=== PATIENT | female | born 1980 | race Caucasian/White ===

== ENCOUNTER → 2024-04-26 10:47 | Outpatient (REF) | payer OTHER, SELFPAY | LOC: RAD 10:47 | PROVIDERS: ATTENDING PHYSICIAN Nurse Practitioner Family | DX: R10.84 Generalized abdominal pain (principal) | CPT/HCPCS: 76700 ==

== ENCOUNTER 2024-08-05 11:47 | Emergency (ER) | payer OTHER, SELFPAY ==
[2024-08-05 11:53] VITALS: BP 150/96
[2024-08-05] MEDS: OMNIPAQUE 50 ML PO (12:02)
[2024-08-05 12:15] LABS: % Basophils 0.4 % (0-2); % Immature Granulocytes 0.2 % (0-0.5); % Lymphocytes 27.5 % (20.5-51.1); % Monocytes 5.8 % (1.7-9.3); % Neutrophils 65.1 % (42.2-75.2); Absolute Basophils 0.1 10^3/uL (0-0.2); Absolute Eosinophils 0.1 10^3/uL (0-0.7); Absolute Lymphocytes 3.1 10^3/uL (1.2-3.4); Absolute Monocytes 0.7 10^3/uL (0.1-0.6); Absolute Neutrophils 7.3 10^3/uL (1.4-6.5); Hematocrit 41.7 % (37.0-47.0); Hemoglobin 14.5 g/dL (12.0-16.0); Mean Corp Hgb Conc. 34.8 g/dL (33.0-37.0); Mean Corpuscular Hgb 29.4 pg (27.0-31.0); Mean Corpuscular Volume 84.6 fL (81.0-99.0); Mean Platelet Volume 10.2 fL (7.4-10.4); Nucleated Red Blood Cells % 0 %; Platelet Count 269 10^3/uL (130-400); Red Blood Cell Count 4.93 10^6/uL (4.20-5.40); Red Cell Dist. Width 12.9 % (11.5-14.5); White Blood Cell Count 11.2 10^3/uL (4.8-10.8)
[2024-08-05 12:51] LABS: ALT (SGPT) 25 U/L (0-35); AST (SGOT) 21 U/L (14-36); Albumin 4.1 g/dl (3.5-5.0); Alkaline Phosphatase 85 U/L (38-126); Blood Urea Nitrogen 22 mg/dl (7-17); Calcium 9.8 mg/dl (8.4-10.2); Carbon Dioxide 29 mmol/L (22-30); Chloride 103 mmol/L (98-107); Glucose 102 mg/dl (70-99); Lipase 107 U/L (23-300); Potassium 4.2 mmol/L (3.5-5.1); Sodium 140 mmol/L (135-145); Total Bilirubin 0.7 mg/dl (0.2-1.3); Total Protein 6.8 g/dl (6.3-8.2); eGFR > 60.00
[2024-08-05 13:09] LABS: Urine Albumin Negative (Neg - Trace); Urine Bilirubin Negative (Negative); Urine Character Clear (Clear); Urine Color Yellow; Urine Glucose Negative (Negative); Urine Ketone Negative (Negative); Urine Leukocyte 2+ (Negative); Urine Nitrite Negative (Negative); Urine Occult Blood Negative (Negative); Urine Urobilinogen Negative (Neg - 1+)
[2024-08-05 13:17] LABS: Urine Bacteria Few (Negative); Urine Red Blood Cell 0-2 /HPF (0-2); Urine Squamous Cell 0-2 /LPF (Few)
--- NOTE | 2024-08-05 15:23 | ED.GENMED ---
History of Present Illness
General
Chief Complaint: Abdominal Pain
Source: patient
Time Seen by Provider: 08/05/24 15:04
History of Present Illness
History of Present Illness:
43-year-old female presenting to the emergency department for evaluation of left lower quadrant abdominal pain that began last night, feels similar to previous episodes of diverticulitis, symptoms worse this morning prompting her to come to the ER.
Denies any fevers, chills, rigors but does admit to some mild nausea. Did not take anything for symptoms prior to arrival. Last notes colonoscopy about 5 years ago. Patient believes her symptoms could have been flared after eating some sunflower
seeds this weekend during her family member's baseball games.
Past History
Past History
ED Past Medical History: Asthma, Other (PNA) and Other (Diverticulitis)
ED Past Surgical History: (X3)
Social History
Tobacco: Non-smoker
Alcohol: Occasional
Drug: None
Personal:
Living: with family
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
Family History
Family History: Other (brother 32 y/o w/ IBS and mom w/ diverticulitis)
Review of Systems
Review of Systems
All Other Systems: ROS reviewed and negative except as documented in HPI and ROS
Phy Exam
Physical Exam
Physical Exam:
GENERAL: Alert , in no apparent distress
EYE: clear conjunctiva b/l
HEAD: NCAT
ENT: o/p clr, mmm.
CARDIAC: Regular rate and rhythm .
LUNGS: Clear breath sounds bilaterally, no acute respiratory distress, no wheezes/rales/rhonchi
ABDOMEN: Soft, mild tenderness within the left lower quadrant, no r/g, no cvat
NEUROLOGICAL: Alert and oriented
SKIN: Warm and dry, skin intact.
MUSCULOSKELETAL: No edema, well perfused.
PSYCH: Normal and appropriate interaction.
Scores
Heart Failure Risk
Heart Failure Risk Score: Not Applicable
Heart Score for Chest Pain Patients
STEMI patient?: Not applicable
Withdrawal Assessment of Alcohol
Withdrawal Assessment Completed?: Not applicable
Course
Orders/Labs/Results
Orders:
Orders
08/05/24 11:58
Iohexol [Omnipaque] 50 ml .ROUTE .STK-MED ONE
08/05/24 12:00
Complete Blood Count/With Diff Urgent
Comprehensive Metabolic Panel Urgent
Lipase Urgent
08/05/24 12:02
Iohexol [Omnipaque] See Protocol PO NOW STA
08/05/24 12:37
Urinalysis Reflex To Culture Urgent
Date Specimen was Collected: 08/05/24
Time Specimen was Collected: 11:56
Urine Microscopic Reflex Cult Urgent
Urine Culture Urgent
ELI Source: U
Specimen Description:
Date Specimen was Collected: 08/05/24
Time Specimen was Collected: 11:56
08/05/24 14:55
CT Abd/pel W Iv And Oral Contr Urgent
Comment:
Reason For Exam: abd pain started prep at 12noon
Abnormal Lab Results
08/05/24 08/05/24
12:00 12:37
WBC 11.2 H 10^3/uL
(4.8-10.8)
Absolute Neuts (auto) 7.3 H 10^3/uL
(1.4-6.5)
Absolute Monos (auto) 0.7 H 10^3/uL
(0.1-0.6)
BUN 22 H mg/dl
(7-17)
Glucose 102 H mg/dl
(70-99)
Leukocyte Esterase Rfl 2+ A
(Negative)
Urine Bacteria (Reflex) Few A
(Negative)
08/05/24 12:00
08/05/24 12:00
Vital Signs
Initial and Last Documented VS:
Initial Vital Signs
Temp Pulse Resp BP Pulse Ox
98.2 F 79 16 150/96 98
08/05/24 11:53 08/05/24 11:53 08/05/24 11:53 08/05/24 11:53 08/05/24 11:53
Last Documented Vital Signs
Temp Pulse Resp BP Pulse Ox
98.2 F 79 16 143/99 98
08/05/24 11:53 08/05/24 11:53 08/05/24 11:53 08/05/24 15:29 08/05/24 11:53
MDM/Problems Addressed
Differential Diagnosis Includes:
Diverticulitis, colitis, appendicitis, pancreatitis, urinary tract infection, renal/ureteral colic
MDM/Problems Addressed:
43-year-old female with left lower quadrant pain x 1 day, history of diverticulitis with symptoms that feel exactly similar. Patient is afebrile and in no acute distress. Declining anything for symptoms. Labs initiated in triage show a mild
leukocytosis of 11,000. Chemistry unremarkable. Will check CT imaging. Disposition pending.
*Radiology
Radiology exam reviewed: radiology read reviewed
*Pulse Oximetry
Patient hypoxic: no
*Critical Care Note
Total Time (30-74mins, 75-104mins- exclusive of procedures): Not Applicable
Data Reviewed
Review of Other/Old Records Reveals: Records and Testing
Source: patient and records
Patient Management
Escalation/DeEscalation of care consider admission/obs:
Patient CT scan shows acute diverticulitis within the distal descending colon. No abscess or bowel perforation. Patient's pain is well-controlled. No fevers. 10-day course of Augmentin sent to pharmacy. Patient advised on follow-up
recommendations as well as return precautions.
ED Attending Note
-
Portions of this chart may have been created with voice recognition software.� Occasional wrong word or��sound alike� substitutions may have occurred due to the inherent limitations of voice recognition software.
Discharge Plan
Departure
Patient Disposition: Home (Routine Discharge)
Date of Disposition: 08/05/24
Time of Disposition: 15:57
Patient with high blood pressure during this ER visit?: Yes
Discharge Problem:
Diverticulitis
Instructions: Diverticulitis (DC)
Prescriptions:
New
amoxicillin-pot clavulanate 875-125 mg tablet
1 tab PO BID 10 Days Qty: 20 0RF
No Action
prochlorperazine maleate 10 MG tablet
10 mg PO Q6HPRN PRN (Reason: n/v, MERA) Qty: 8 0RF
Referrals:
UNKNOWN - PT DOES,NOT KNOW [Family Provider] -
Interventions
Interventions:
*Risk Screen - Suicide Last Done: 08/05/24 11:53
*General Assessment Last Done: 08/05/24 15:32
*Neglect/Abuse Screening Last Done: 08/05/24 11:53
*ED- Fall Risk Assessment Last Done: 08/05/24 15:32
*ED COVID-19 Vaccine History Last Done: 08/05/24 15:32
BJ-Discjv-Hgyisfreoj Assessment Last Done: 08/05/24 15:32
Discharge Date and Time
Print Language: [email or web address]
[2024-08-05 15:29] VITALS: BP 143/99
== END 2024-08-05 16:00 | disposition home or self-care (01) ==
LOC: EMR 11:47
PROVIDERS: Student in an Organized Health Care Education/Training Program; EMERGENCY PHYSICIAN Emergency Medicine; FAMILY PHYSICIAN Internal Medicine
DX: K57.32 Diverticulitis of large intestine without perforation or abscess without bleeding (principal); J45.909 Unspecified asthma, uncomplicated
CPT/HCPCS: 99284; 74177; 80053; 81003; 81015; 83690; 85025; 87086; Q9967